=== PATIENT | female | born 1995 | race Caucasian/White ===

== ENCOUNTER 2019-01-21 08:27 | Outpatient (CLI) | payer OTHER ==
--- NOTE | 2019-01-21 09:34 | ULT ---
BILATERAL RENAL ULTRASOUND COMPLETE: Date: 01/21/19 HISTORY: History of stones. FINDINGS: Right kidney measures 11.0 x 4.9 x 4.2 cm. Left kidney measures 11.4 x 6.1 x 5.6 cm. 1.4 x 1.7 x 1.8 cm diameter right renal cyst. No renal hydronephrosis or perinephric process. Bladder is unremarkable. IMPRESSION: Small right renal cyst. No renal hydronephrosis. POS: OFF
== END 2019-01-21 08:28 | disposition home or self-care (01) ==
LOC: SCSULT 08:27
PROVIDERS: ATTEND Family Medicine
DX: N20.2 Calculus of kidney with calculus of ureter (principal); N28.1 Cyst of kidney, acquired
CPT/HCPCS: 76770